=== PATIENT | female | born 1945 | race Caucasian/White ===

== ENCOUNTER → 2016-10-19 | Outpatient (CLI) | payer OTHER | LOC: RAD 10-12 03:06 | DX: N63 Unspecified lump in breast (principal); R92.0 Mammographic microcalcification found on diagnostic imaging of breast ==

== ENCOUNTER → 2016-10-25 | Outpatient (CLI) | payer OTHER ==
--- NOTE | ~2016-10-25 | S ---
[facility] [place] [address] SURGICAL PATH RPT PROCEDURE Name: LANEY ESTEBAN TATE Room #: REG IVONNE Louis.#: [id number] Admission: 10/25/16 Date of : 49 Discharge: Report #: [id number] Path Case #: [id number] PATHOLOGY REPORT COLLECTION DATE: 10/25/2016 RECEIVED DATE: 10/25/2016 SUBMITTING PHYS: Dr. Flynn Blake OTHER PHYS: Dr. Shemar Palomares SPECIMEN(S) RECEIVED: A.Right posterior central * * * * * * * * * * * * FINAL DIAGNOSIS: Breast, right posterior central, needle core biopsy: - Fat necrosis, cholesterol clefts and hemosiderin laden macrophages consistent with reparative changes. - Negative for malignancy. - Background breast tissue showing non-proliferative changes. - Coarse calcifications associated with reparative changes. COMMENT: Immunohistochemical stain performed on block [id number] within the infiltrate. Co-review: Dr. Chloe Davis (IUV:mgr; d/t: 10/26/16) PATHOLOGIST: Stephani Walker M.D. REPORT ELECTRONICALLY SIGNED BY: Stephani Walker M.D. DATE/TIME: 10/27/2016 09:53 * * * * * * * * * * * * GROSS PATHOLOGY: Received in formalin labeled "Laney Esteban, right," and additionally labeled on the requisition as, "right posterior central". Received are multiple needle cores of yellow-harris fibrofatty tissue measuring 3.2 x 3.0 x 0.6 cm in aggregate dimensions. Also received is a plastic cassette containing multiple cores of yellow-harris fibrofatty tissue measuring 2.6 x 1.8 x 0.5 cm in aggregate dimensions. The tissue in the cassette is transferred to cassette A1, and the remaining tissue is submitted in its entirety in cassette A2 and A3. The cold ischemic time is 5 minutes. The total formalin fixation time is 6 hours. (CAA; 10/25/2016) [facility] [place] [address] SURGICAL PATH RPT PROCEDURE Name: LANEY ESTEBAN TATE Room #: REG IVONNE Myers.#: [id number] Admission: 10/25/16 Date of : 49 Discharge: Report #: [id number] Path Case #: [id number] CLINICAL HISTORY: Right breast calcifications INITIAL CPT CODE(S): A; 61980, 18783 Professional services performed by [facility] [address], [place] [address] Technical services performed by [facility] at [address] [place] [address], [facility] [address] [address]. [facility] [address] [place] [id number] PHONE: [phone] DIRECTOR: Artie Garcia M.D. * * * END OF REPORT * * *
== END ==
LOC: RADSTEREO 01:21
DX: R92.1 Mammographic calcification found on diagnostic imaging of breast (principal)

== ENCOUNTER → 2017-05-04 | Outpatient (CLI) | payer OTHER | LOC: RAD 10:01 | DX: R92.8 Other abnormal and inconclusive findings on diagnostic imaging of breast (principal) ==

== ENCOUNTER → 2017-10-04 | Outpatient (CLI) | payer OTHER | LOC: RAD 10-03 01:25 | DX: Z12.31 Encounter for screening mammogram for malignant neoplasm of breast (principal) ==

== ENCOUNTER → 2017-10-11 | Outpatient (CLI) | payer OTHER | LOC: RAD 03:58 | DX: R92.8 Other abnormal and inconclusive findings on diagnostic imaging of breast (principal) ==

== ENCOUNTER → 2018-04-11 | Outpatient (CLI) | payer OTHER | LOC: RAD 01:12 | DX: R92.1 Mammographic calcification found on diagnostic imaging of breast (principal) ==